=== PATIENT | female | born 1960 | race American Indian/Alaskan Native ===

== ENCOUNTER 2017-02-01 02:11 | Emergency (ER) | payer OTHER ==
[2017-02-01 02:31] VITALS: BP 141/99
[2017-02-01 03:14] LABS: Basophils % (Auto) 0.5 % (0.0-1.8); Eosinophils % (Auto) 1.5 % (0.0-4.3); Hematocrit 39.7 % (30.3-42.9); Hemoglobin 13.2 gm/dl (10.1-14.3); Mean Corpuscular HGB Conc 33 % (30-34); Mean Corpuscular Hemoglobin 30 pg (28-32); Mean Corpuscular Volume 90 fl (79-97); Platelet Count 201 K/mm3 (140-440); Red Blood Count 4.41 M/mm3 (3.65-5.03); Red Cell Distribution Width 13.1 % (13.2-15.2); White Blood Count 7.6 K/mm3 (4.5-11.0)
[2017-02-01 03:33] LABS: Anion Gap 17 mmol/L; Blood Urea Nitrogen 18 mg/dL (7-17); Calcium 9.5 mg/dL (8.4-10.2); Carbon Dioxide 25 mmol/L (22-30); Chloride 101.4 mmol/L (98-107); Glucose 92 mg/dL (65-100); Potassium 3.7 mmol/L (3.6-5.0); Sodium 140 mmol/L (137-145)
--- NOTE | 2017-02-01 07:35 | XRay Report ---
ROUTINE CHEST, TWO VIEWS: HISTORY: Shortness of breath. The trachea, heart, mediastinal contour, lung purcell and bony thorax are unremarkable. IMPRESSION: Unremarkable chest x-ray.
--- NOTE | 2017-02-06 11:18 | ED Elopement Review ---
ED Pt Elopement review - Results review Lab results: Laboratory Tests 02/01/17 02/01/17 02:53 02:53 WBC 7.6 RBC 4.41 Hgb 13.2 Hct 39.7 MCV 90 MCH 30 MCHC 33 RDW 13.1 L Plt Count 201 Lymph % (Auto) 35.0 Kern % (Auto) 9.0 H Eos % (Auto) 1.5 Baso % (Auto) 0.5 Lymph # 2.7 Kern # 0.7 Eos # 0.1 Baso # 0.0 Seg Neutrophils % 54.0 Seg Neutrophils # 4.1 Sodium 140 Potassium 3.7 Chloride 101.4 Carbon Dioxide 25 Anion Gap 17 BUN 18 H Creatinine 0.8 Estimated GFR > 60 BUN/Creatinine Ratio 22.50 Glucose 92 Calcium 9.5 Troponin T < 0.010 CXR- NAP - Call Back decision Pt Call Back Decision: Call pt to return to ED [facility] (PT is a 56 year old female with CHF and c/o SOB. PT will need BNP.)
== END 2017-02-01 03:00 | disposition left against medical advice (07) ==
LOC: ED 02:11
DX: R06.02 Shortness of breath (principal); R11.0 Nausea; Z53.21 Procedure and treatment not carried out due to patient leaving prior to being seen by health care provider
CPT/HCPCS: 36415; 71020; 80048; 84484; 85025; 93005; 93010

== ENCOUNTER 2018-12-30 06:57 | Emergency (ER) | payer OTHER ==
[2018-12-30 07:22] LABS: Basophils # (Auto) 0.1 K/mm3 (0.0-0.1); Basophils % (Auto) 0.8 % (0.0-1.8); Eosinophils # (Auto) 0.1 K/mm3 (0.0-0.4); Eosinophils % (Auto) 1.3 % (0.0-4.3); Hematocrit 35.9 % (30.3-42.9); Hemoglobin 12.3 gm/dl (10.1-14.3); Lymphocytes % (Auto) 37.1 % (13.4-35.0); Mean Corpuscular HGB Conc 34 % (30-34); Mean Corpuscular Volume 94 fl (79-97); Monocytes # (Auto) 0.6 K/mm3 (0.0-0.8); Monocytes % (Auto) 7.9 % (0.0-7.3); Platelet Count 243 K/mm3 (140-440); Red Blood Count 3.83 M/mm3 (3.65-5.03); Red Cell Distribution Width 13.7 % (13.2-15.2)
[2018-12-30 07:35] LABS: Partial Thromboplastin Time 29.7 Sec. (24.2-36.6)
[2018-12-30 07:40] LABS: Alanine Aminotransferase 23 units/L (7-56); Albumin 4.2 g/dL (3.9-5); BUN/Creatinine Ratio 23; Blood Urea Nitrogen 23 mg/dL (7-17); Calcium 9.5 mg/dL (8.4-10.2); Hemolysis Index 9
--- NOTE | 2018-12-30 09:22 | XRay Report ---
PROCEDURE: XR CHEST ROUTINE 2V TECHNIQUE: Chest radiograph, frontal and lateral views. HISTORY: Shortness of breath. COMPARISONS: None currently available. FINDINGS: Cardiac silhouette is within normal limits. There is no effusion. There is no pneumothorax. There is no consolidation. There are no suspicious osseous lesions. IMPRESSION: * No acute cardiopulmonary findings. This document is electronically signed by Mikey Farris MD., December 30 2018 09:19:47 AM ET
== END 2018-12-30 10:00 | disposition left against medical advice (07) ==
LOC: ED 06:57
DX: R20.2 Paresthesia of skin (principal); R06.02 Shortness of breath; Z53.21 Procedure and treatment not carried out due to patient leaving prior to being seen by health care provider
CPT/HCPCS: 36415; 71046; 80053; 83880; 85025; 85610; 85730; 93005; 93010